=== PATIENT | female | born 1965 | race Hispanic/Latino ===

== ENCOUNTER → 2018-11-09 | Outpatient (CLI) | payer BC | END | disposition home or self-care (01) | LOC: SHCH 13:39 | PROVIDERS: ATTEND Internal Medicine Cardiovascular Disease | DX: J84.10 Pulmonary fibrosis, unspecified (principal) | CPT/HCPCS: 93306 ==

== ENCOUNTER → 2018-11-20 | Outpatient (CLI) | payer BC ==
[~2018-11-20] MED LIST: IOHEXOL-350 75 ML VIAL IV ONE
== END | disposition home or self-care (01) ==
LOC: RAH 08:53
PROVIDERS: ATTEND Internal Medicine Critical Care Medicine
DX: J47.9 Bronchiectasis, uncomplicated (principal); J90 Pleural effusion, not elsewhere classified; J84.10 Pulmonary fibrosis, unspecified; K44.9 Diaphragmatic hernia without obstruction or gangrene
CPT/HCPCS: 71260; Q9967

== ENCOUNTER → 2020-12-30 | Outpatient (CLI) | payer BC | END | disposition home or self-care (01) | LOC: RAH 15:05 | PROVIDERS: ATTEND Internal Medicine Critical Care Medicine | DX: M05.10 Rheumatoid lung disease with rheumatoid arthritis of unspecified site (principal); J84.10 Pulmonary fibrosis, unspecified | CPT/HCPCS: 71250 ==